=== PATIENT | male | born 1970 | race Caucasian/White ===

== ENCOUNTER → 2019-08-19 15:25 | Outpatient (CLI) | payer BC, SELFPAY ==
--- NOTE | 2019-08-19 15:30 | MRI_ITS ---
STUDY: MRI BRAIN WITH AND WITHOUT CONTRAST (ATTENTION INTERNAL AUDITORY CANALS - I.A.C.''s) REASON FOR EXAM: Male, 48 years old. sudden left hearing loss, no tinnitus or dizziness, plugged feeling x 4 months TECHNIQUE: Standardized multiplanar fat and water weighted pulse sequences were obtained. IV dotarem 19ml was administered for the contrast portion of the examination. COMPARISON: None. FINDINGS: Normal bilateral temporal bones. Normal bilateral internal auditory canals. There is no demonstrated intracanalicular or cisternal vestibular schwannoma (acoustic neuroma). There is no enhancement of the bilateral VIIth or VIIIth cranial nerves. Normal bilateral cochlea, vestibules and semicircular canals. Normal size of the ventricles and extra-axial spaces for the patient''s age. Solitary tiny punctate white matter lesion in the right frontal lobe without mass effect or restricted diffusion. Normal bilateral basal ganglia. Normal thalami. Normal flow voids within the major intracranial circulation suggesting patency by spin echo criteria. Normal venous enhancement. There is no enhancing intra-axial or extra-axial abnormality. There is no extra-axial fluid accumulation. Normal sella turcica, pituitary gland, infundibular stalk, optic chiasm and hypothalamus. Normal tectal plate and pineal gland. Normal midbrain, jame and medulla. Normal cerebellum. Normal basal cisterns. No demonstrated orbital abnormality, within the constraints of a routine brain study. Tiny polyp or mucous retention cyst in right ethmoid air cells. Minor mucosal thickening within the ethmoid and frontal sinuses Normal calvarium and skull base. Normal visualized soft tissue structures. Normal visualized upper cervical spine. MRI/Brain W/WO Contrast IMPRESSION: Tiny nonspecific punctate white matter lesion in the right frontal lobe likely of no clinical significance. No significant periventricular white matter disease or evidence for acute infarct No evidence for acoustic or vestibular schwannoma Minor bilateral ethmoid and frontal sinus disease Electronically Signed: Garry Merida MD at 17:49 EDT , Service support ,
== END ==
PROVIDERS: Referring Provider Otolaryngology; Visit Provider Otolaryngology
DX: H91.22 Sudden idiopathic hearing loss, left ear (principal)
CPT/HCPCS: 70553; A9575